=== PATIENT | female | born 1980 | race Caucasian/White ===

== ENCOUNTER → 2016-12-19 | Outpatient (CLI) | payer BC ==
[~2016-12-19] MED LIST: AMBIEN 10MG10 MG PO; AMOXICILLIN 8751 TAB PO; BENTYL 20MG20 MG/TAB PO; KLONOPIN 0.5MG0.5 MG PO; MOTRIN 600600 MG/TAB PO; NORCO 325 MG-51 TAB PO; PAXIL 20MG20 MG PO; PROTONIX 40MG T40 MG PO; ULTRAM 50MG TAB50 MG PO
== END ==
LOC: COL.RAD 14:58
DX: N13.2 Hydronephrosis with renal and ureteral calculous obstruction (principal); R10.84 Generalized abdominal pain

== ENCOUNTER → 2017-11-06 | Outpatient (CLI) | payer BC | LOC: COL.VAS 10:55 | DX: I08.8 Other rheumatic multiple valve diseases (principal); D89.89 Other specified disorders involving the immune mechanism, not elsewhere classified; M79.89 Other specified soft tissue disorders ==

== ENCOUNTER → 2018-04-29 | Outpatient (CLI) | payer BC | LOC: COL.RAD 10:40 | DX: R10.13 Epigastric pain (principal) ==

== ENCOUNTER → 2018-07-18 | Outpatient (CLI) | payer BC ==
[~2018-07-18] MED LIST changes: +CARAFATE 1GM1 G PO; +LEVBID0.375 MG; +NORVASC 10MG10 MG PO; +PLAQUENIL 200M200 MG PO; +ZOLOFT 100MG100 MG PO
== END ==
LOC: MC.RAD 07:10
DX: Z00.00 Encounter for general adult medical examination without abnormal findings (principal); Z12.31 Encounter for screening mammogram for malignant neoplasm of breast

== ENCOUNTER → 2024-07-16 | Outpatient (CLI) | payer BC | LOC: MC.RAD 09:03 | DX: Z12.31 Encounter for screening mammogram for malignant neoplasm of breast (principal) ==